=== PATIENT | female | born 1955 | race African-American/Black ===

== ENCOUNTER 2018-04-05 10:00 | Outpatient (CLI) | payer MEDICARE, MEDICAID ==
--- NOTE | 2018-04-05 10:36 | Diagnostic Imaging Report ---
Indication: Memory loss Technique: Contiguous 5 mm thick transaxial imaging of the head obtained in a Siemens Sensation [address] scanner. Soft tissue and bone windows generated. Automatic Exposure Control was utilized. Total Dose length Product (DLP): 1330.[address] Dose Index Volume (CTDIvol): 70.38 mGy Comparison: none Findings: There is an area of low attenuation consistent with cystic encephalomalacia in the left basal ganglia region. This is associated with mild asymmetry of the anterior horn of the lateral ventricles due to ex vacuole dilatation of the left anterior horn. There is no hemorrhage identified. There is no evidence of mass effect, edema or midline shift. The sulci and basal cisterns appear normal for patient age. Ventricles appear symmetric otherwise. Bones are unremarkable. 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 Negative exam otherwise The CT scanner at [facility] is accredited by the [employer] and the scans are performed using dose optimization techniques as appropriate to a performed exam including Automatic Exposure control.
== END 2018-04-05 12:00 | disposition home or self-care (01) ==
LOC: CAT 10:00
DX: R41.3 Other amnesia (principal); I25.2 Old myocardial infarction
CPT/HCPCS: 70450

== ENCOUNTER 2018-07-26 04:51 | Emergency (ER) | payer MEDICARE, MEDICAID ==
[~2018-07-26] VITALS: Ht 152.4 cm; Wt 52.6 kg
[2018-07-26] MEDS ORDERED: LORazepam Inj 2mg/ml 1ml IV ONE ×2 (05:00→06:15)
[2018-07-26 05:17] VITALS: BP 146/124
[2018-07-26 05:54] VITALS: BP 93/60
[2018-07-26] MEDS ORDERED: ALPRAZOLAM0.5 MG PO (06:15)
[2018-07-26 06:48] VITALS: BP 139/86
--- NOTE | 2018-07-26 21:21 | Emergency Room Report ---
History of Present Illness General Chief Complaint: General Complaint Source: Patient, Friend Present Illness HPI 62-year-old female presents ED for evaluation. Patient walked in with distress which started tonight. Patient told triage that she is having a hard time breathing but she is having a panic attack. States that her is been missing for 1 day. File police report. History of anxiety. Normally takes Xanax but does not have medication at this time. States she is having trouble catching her breath. Denies chest pain. Denies fevers chills. Denies cough. Denies alcohol or drug use. No other aggravating relieving factors. Denies any other associated symptoms Allergies: Coded Allergies: No Known Allergies (Unverified , 07/26/18) Patient History Past Medical History: DM, HTN, psych hx Past Surgical History: none Pertinent Family History: none Social History: Denies: smoking, alcohol use, drug use Now: No Immunizations: UTD Reviewed Nursing Documentation: PMH: Agreed; PSxH: Agreed Nursing Documentation-PMH Hx Cardiac Problems: Yes - Stents Hx Hypertension: Yes Hx Diabetes: Yes Review of Systems All Other Systems: negative except mentioned in HPI Physical Exam Vital Signs Date Time Temp Pulse Resp B/P (MAP) Pulse Ox O2 Delivery O2 Flow Rate FiO2 07/26/18 04:56 97.9 85 20 143/103 97 Room Air 07/26/18 05:54 15.0 100 Sp02 EP Interpretation: reviewed, normal General Appearance: alert, GCS 15, non-toxic, moderate distress Head: normocephalic Eyes: bilateral eye normal inspection, bilateral eye PERRL ENT: normal ENT inspection Neck: normal inspection Respiratory: chest non-tender, lungs clear, normal breath sounds, speaking full sentences Cardiovascular #1: regular rate, rhythm, no edema Gastrointestinal: normal bowel sounds, non tender, soft, non-distended, no guarding, no rebound Rectal: deferred Genitourinary: no CVA tenderness Musculoskeletal: normal inspection Neurologic: alert, oriented x3, responsive, motor strength/tone normal, sensory intact, speech normal Psychiatric: no suicidal/homicidal ideation, no delusions, anxious Skin: normal inspection Lymphatic: normal inspection Medical Decision Making Diagnostic Impression: Primary Impression: Anxiety ER Course Hospital Course 62 yo F presents to ED c/o distress. h/o anxiety. states her is missing Differential diagnoses include: anxiety, psychosis, ETOH Clinical course Patient placed on stretcher. on cardiac catheterization technician. After initial history, physical exam reveals an elderly female in in distress. Patient appears to be having trouble breathing but has good breath sounds bilaterally. O2 sats 100% on room air. Patient started on oxygen. Given Ativan Upon reassessment patient is observed feeling better. Interacting appropriately. Patient states that she ran out of her Xanax. States that she filed a police report regarding her missing . I believe patient would benefit from a refill of her Xanax prescription. Recommend that she follows up with the police and follows up with her PMD I. I feel this is a highly complex case requiring extensive working including EKG/Rhythm strip, Xray/CT/US, Blood/urine lab work, repeat exams while in ED, and administration of strong opiates/narcotics for pain control, admission to hospital or close patient follow up. Diagnosis - anxiety Stable and discharged to home with Rx Xanax. Followup with PMD. Return to ED if symptoms recur or worse Last Vital Signs Date Time Temp Pulse Resp B/P (MAP) Pulse Ox O2 Delivery O2 Flow Rate FiO2 07/26/18 06:48 98.9 89 16 139/86 100 07/26/18 05:54 Non-Rebreather 15.0 100 Status: improved Disposition: HOME, SELF-CARE Condition: Stable Scripts Alprazolam* (XANAX*) 0.5 Mg Tablet 0.5 MG PO TID for 5 Days, TAB Prov: Roger Feliz MD 07/26/18 Patient Instructions: Panic Attacks, [id number] Roger Feliz MD Jul 26, 2018 21:21
== END 2018-07-26 06:58 | disposition home or self-care (01) ==
LOC: EMR 05:05
DX: F41.9 Anxiety disorder, unspecified (principal); E11.9 Type 2 diabetes mellitus without complications; I10 Essential (primary) hypertension
CPT/HCPCS: 94760; 96374; 96376; 99284

== ENCOUNTER 2018-09-18 11:31 | Emergency (ER) | payer MEDICARE, MEDICAID ==
[~2018-09-18] VITALS: Ht 152.4 cm; Wt 49.9 kg
[~2018-09-18 11:31] MED LIST: ALPRAZOLAM0.5 MG PO
[2018-09-18 11:39] VITALS: BP 110/75
--- NOTE | 2018-09-18 11:40 | NUR ---
ED Nurse Note:sent by dr Cooley to be eval for dizziness x 1 month. pt states that she is having n/v at home. denies fever or pain. at the bedside
--- NOTE | 2018-09-18 13:22 | Diagnostic Imaging Report ---
. Indications: Dizziness Technique: Spiral acquisitions obtained through the brain. Angled axial and coronal 5 x 5 mm slices were reconstructed. Total dose length product 1302.19 mGycm. CTDI vol(s) 70.38 mGy. Dose reduction achieved using automated exposure control Comparison: 04/05/2018 Findings: Old left basal ganglia and internal capsule lacunar infarct is again noted. This results in minimal ex vacuo dilatation of the frontal horn of the left lateral ventricle, also previously described. No acute intracranial hemorrhage or edema, mass effect, nor midline shift. There is minimal age-related prominence of the ventricles and extra-axial CSF spaces again noted. There is minimal deep white matter low-attenuation noted, particularly in the left frontal region. Otherwise normal larson-white differentiation. Visualized orbits and sinuses are unremarkable. The calvarium is intact. Impression: Negative for acute intracranial bleed or mass effect Left basal ganglia lacunar infarct, also previously reported The CT scanner at [facility] is accredited by the [employer] and the scans are performed using protocols designed to limit radiation exposure to as low as reasonably achievable to attain images of sufficient resolution adequate for diagnostic evaluation.
[2018-09-18 13:34] LABS: BASOPHILS % (AUTO) 0.9 % (0.0-2.0); EOSINOPHILS % (AUTO) 0.7 % (0.0-3.0); HEMATOCRIT 38.3 % (37.0-47.0); HEMOGLOBIN 12.5 G/DL (12.0-16.0); LYMPHOCYTES % (AUTO) 25.2 % (20.0-45.0); MEAN CORPUSCULAR VOLUME 89 FL (80-99); MONOCYTES % (AUTO) 8.8 % (1.0-10.0); NEUTROPHILS % (AUTO) 64.3 % (45.0-75.0); PLATELET COUNT 287 K/UL (150-450); RED BLOOD COUNT 4.31 M/UL (4.20-5.40); RED CELL DISTRIBUTION WIDTH 12.6 % (11.6-14.8); WHITE BLOOD COUNT 8.6 K/UL (4.8-10.8)
[2018-09-18 13:38] LABS: APPEARANCE,URINE CLEAR; BILIRUBIN, URINE NEGATIVE (NEGATIVE); COLOR,URINE PALE YELLOW; GLUCOSE, URINE (UA) NEGATIVE (NEGATIVE); KETONES,URINE NEGATIVE (NEGATIVE); LEUKOCYTE ESTERASE ,URINE 1+ (NEGATIVE); NITRITE,URINE NEGATIVE (NEGATIVE); PH,URINE 7 (4.5-8.0); PROTEIN,URINE 3+ (NEGATIVE); UROBILINOGEN,URINE NORMAL MG/DL (0.0-1.0)
[2018-09-18 13:40] LABS: INR 0.9 (0.9-1.1)
[2018-09-18] MEDS ORDERED: Meclizine 25mg tab ORAL ONE (13:45)
[2018-09-18 13:50] LABS: ALANINE AMINOTRANSFERASE 25 U/L (12-78); ALBUMIN 4.3 G/DL (3.4-5.0); ALBUMIN/GLOBULIN RATIO 1.1 (1.0-2.7); ALKALINE PHOSPHATASE 56 U/L (46-116); ANION GAP 12 mmol/L (5-15); ASPARTATE AMINO TRANSFERASE 20 U/L (15-37); BILIRUBIN,TOTAL 0.3 MG/DL (0.2-1.0); BLOOD UREA NITROGEN 16 mg/dL (7-18); CALCIUM 10.2 MG/DL (8.5-10.1); CARBON DIOXIDE 27 MMOL/L (21-32); CHLORIDE 98 MMOL/L (98-107); CREATININE 1.3 MG/DL (0.55-1.30); SODIUM 137 MMOL/L (136-145)
[2018-09-18 13:57] LABS: POTASSIUM 2.6 MMOL/L (3.5-5.1)
--- NOTE | 2018-09-18 14:30 | Emergency Room Report ---
History of Present Illness General Chief Complaint: Dizziness Source: Patient Present Illness HPI Patient is a 62-year-old female sent in by nursing facility PMD from home. Patient was noted to have increased dizziness as well as generalized weakness. She reports having multiple episodes of watery diarrhea. Patient reports having some vertigo sensation. She reportedly had a recent colonoscopy. Patient reports having some episodes of spinning sensation worse with head movements. She denies any hematemesis. She had prior history of cardiac disease and had prior cardiac stents. Patient is currently taking medications for hypertension. Allergies: Coded Allergies: No Known Allergies (Unverified , 07/26/18) Patient History Past Medical History: see triage record Last Menstrual Period: na Reviewed Nursing Documentation: PMH: Agreed; PSxH: Agreed Nursing Documentation-PMH Past Medical History: No History, Except For Hx Cardiac Problems: Yes - Stents Hx Hypertension: Yes Hx Diabetes: Yes Review of Systems All Other Systems: negative except mentioned in HPI Physical Exam Vital Signs Date Time Temp Pulse Resp B/P (MAP) Pulse Ox O2 Delivery O2 Flow Rate FiO2 09/18/18 11:39 98.1 70 20 110/75 99 Room Air Sp02 EP Interpretation: reviewed, normal General Appearance: normal inspection, well appearing, no apparent distress, alert, GCS 15 Head: atraumatic ENT: normal ENT inspection, hearing grossly normal, normal voice, other - right tm Neck: normal inspection, full range of motion, supple, no bony tend Respiratory: normal inspection, lungs clear, normal breath sounds, no respiratory distress, no retraction, no wheezing Cardiovascular #1: regular rate, rhythm, no edema Gastrointestinal: normal inspection, normal bowel sounds, non tender, soft, no guarding, no hernia Genitourinary: no CVA tenderness Musculoskeletal: normal inspection, back normal, normal range of motion Neurologic: normal inspection, alert, responsive, speech normal Psychiatric: normal inspection, judgement/insight normal, mood/affect normal Skin: normal inspection, normal color, no rash Medical Decision Making Diagnostic Impression: Primary Impression: Anxiety Additional Impressions: Hypokalemia Vertigo ER Course Patient presented for dizziness. Differential diagnosis included was not limited to CVA, vertebrobasilar insufficiency, myocardial infarction, benign positional vertigo, labyrinthitis, aspirin overdose among others. The patient has exam consistent with peripheral vertigo likely do to benign positional vertigo. Patient was given oral meclizine. Patient had improvement in symptoms. Patient noted to have EKG which showed some evidence of hypokalemia. Patient was given oral potassium. Patient be discharged home. She is advised to recheck with Dr. Cooley in the next few days. Laboratory Tests Test 09/18/18 12:45 White Blood Count 8.6 K/UL (4.8-10.8) Red Blood Count 4.31 M/UL (4.20-5.40) Hemoglobin 12.5 G/DL (12.0-16.0) Hematocrit 38.3 % (37.0-47.0) Mean Corpuscular Volume 89 FL (80-99) Mean Corpuscular Hemoglobin 29.1 PG (27.0-31.0) Mean Corpuscular Hemoglobin Concent 32.7 G/DL (32.0-36.0) Red Cell Distribution Width 12.6 % (11.6-14.8) Platelet Count 287 K/UL (150-450) Mean Platelet Volume 7.4 FL (6.5-10.1) Neutrophils (%) (Auto) 64.3 % (45.0-75.0) Lymphocytes (%) (Auto) 25.2 % (20.0-45.0) Monocytes (%) (Auto) 8.8 % (1.0-10.0) Eosinophils (%) (Auto) 0.7 % (0.0-3.0) Basophils (%) (Auto) 0.9 % (0.0-2.0) Prothrombin Time 10.0 SEC (9.30-11.50) Prothrombin Time INR 0.9 (0.9-1.1) PTT 25 SEC (23-33) Urine Color Pale yellow Urine Appearance Clear Urine pH 7 (4.5-8.0) Urine Specific [place] 1.005 (1.005-1.035) Urine Protein 3+ (NEGATIVE) H Urine Glucose (UA) Negative (NEGATIVE) Urine Ketones Negative (NEGATIVE) Urine Blood 2+ (NEGATIVE) H Urine Nitrite Negative (NEGATIVE) Urine Bilirubin Negative (NEGATIVE) Urine Urobilinogen Normal MG/DL (0.0-1.0) Urine Leukocyte Esterase 1+ (NEGATIVE) H Urine RBC 0-2 /HPF (0 - 2) Urine WBC 2-4 /HPF (0 - 2) Urine Squamous Epithelial Cells Occasional /LPF Urine Bacteria Few /HPF (NONE) Sodium Level 137 MMOL/L (136-145) Potassium Level 2.6 MMOL/L (3.5-5.1) *L Chloride Level 98 MMOL/L (98-107) Carbon Dioxide Level 27 MMOL/L (21-32) Anion Gap 12 mmol/L (5-15) Blood Urea Nitrogen 16 mg/dL (7-18) Creatinine 1.3 MG/DL (0.55-1.30) Estimate Glomerular Filtration Rate 50.1 mL/min (>60) Glucose Level 88 MG/DL (74-106) Calcium Level 10.2 MG/DL (8.5-10.1) H Total Bilirubin 0.3 MG/DL (0.2-1.0) Aspartate Amino Transferase (AST) 20 U/L (15-37) Alanine Aminotransferase (ALT) 25 U/L (12-78) Alkaline Phosphatase 56 U/L (46-116) Troponin I 0.000 ng/mL (0.000-0.056) Pro-B-Type Natriuretic Peptide 58 pg/mL (0-125) Total Protein 8.3 G/DL (6.4-8.2) H Albumin 4.3 G/DL (3.4-5.0) Globulin 4.0 g/dL Albumin/Globulin Ratio 1.1 (1.0-2.7) EKG Diagnostic Results Rate: normal Rhythm: NSR ST Segments: other - twave flattened Last Vital Signs Date Time Temp Pulse Resp B/P (MAP) Pulse Ox O2 Delivery O2 Flow Rate FiO2 09/18/18 11:39 98.1 70 20 110/75 99 Room Air Status: improved Disposition: HOME, SELF-CARE Condition: Stable Scripts Potassium Chloride* (K-DUR*) 10 Meq Capsule.er 10 MEQ ORAL DAILY, #7 TAB 0 Refills Prov: Titi Linton MD 09/18/18 Meclizine Hcl* (MECLIZINE*) 25 Mg Tablet 25 MG ORAL THREE TIMES A DAY, #20 TAB Prov: Titi Linton MD 09/18/18 Referrals: Lonnie Cooley MD (PCP) Titi Linton MD Sep 18, 2018 14:29
[2018-09-18] MEDS ORDERED: POTASSIUM CHLO10 MEQ ORAL (15:30)
[2018-09-18] MEDS ORDERED: MECLIZINE HCL25 MG ORAL (15:30)
[2018-09-18 15:42] VITALS: BP 112/69
--- NOTE | 2018-09-18 15:42 | NUR ---
ED Nurse Note: PT. AAOX4. LEFT WITH STEADY GAIT WITH HER . PT. EDUCATION DONE REGARDING D/C PAPERS AND PRESCRIPTIONS.PT. VERBALIZED THE UNDERSTANDING OF THE TEACHING. VSS. ID [place] REMOVED.IV ACCESS REMOVED. LEFT WITH ALL BELONGINGS
--- NOTE | 2018-09-18 16:52 | Diagnostic Imaging Report ---
Indication: Chest pain Technique: One view of the chest Comparison: none Findings: Lungs and pleural spaces are clear. Heart size is normal. The aorta is somewhat tortuous Impression: No acute process
== END 2018-09-18 15:42 | disposition home or self-care (01) ==
LOC: EMR 12:25
DX: F41.9 Anxiety disorder, unspecified (principal); E87.6 Hypokalemia; R42 Dizziness and giddiness; I10 Essential (primary) hypertension; E11.9 Type 2 diabetes mellitus without complications
CPT/HCPCS: 36415; 70450; 71045; 80053; 81003; 83880; 84484; 85025; 85610; 85730; 93005; 96374; 99284; J2405; J7040; J8499